=== PATIENT | female | born 1980 | race Caucasian/White ===

== ENCOUNTER → 2019-06-16 | Outpatient (CLI) | payer OTHER ==
[~2019-06-16] MED LIST: ACEBUTCAFT; ACEBUTCAFT PO; CODBUTACEC PO; ESTNORT; IBUP800 PO; NORT25 PO; OXYACE5T PO; PROM25 PO; PROP10 PO; PROP60 PO; RXONDA4ODT MM; SERT50
== END | disposition home or self-care (01) ==
LOC: LAB SHORT 10:06 → PLD 10:06
DX: M77.51 Other enthesopathy of right foot and ankle (principal); L85.1 Acquired keratosis [keratoderma] palmaris et plantaris; Q66.71 Congenital pes cavus, right foot
CPT/HCPCS: 88305; 88311

== ENCOUNTER 2019-09-23 10:48 | Day surgery (SDC) | payer OTHER ==
[~2019-09-23] VITALS: Ht 157.5 cm; Wt 106.5 kg
[~2019-09-23 10:48] MED LIST changes: +ACIDOPHILUS1 EAC3 PO; +ALPR.5; +DULO30 PO; +ESCI20 PO; +PROP120ER PO
--- NOTE | 2019-09-23 12:58 | NUR ---
09/23/19 1258 Lorraine Blackburn (Zoya 35F NASAL AIRWAY PLACED BY DR. RODRÍGUEZ AFTER PROCEDURE D/T OXYGEN DESATURATION. PT TOLERATED WELL, O2 SAT RETURNED TO BASELINE.
--- NOTE | 2019-09-23 13:46 | NUR ---
09/23/19 1346 Tamika Jaquez V PT NOTICED HER PANTS WERE WET WHEN SHE GOT OUT OF THE BED TO WALK OUT TO HER RIDE. [facility]SC.NVP OFFERED PT A CHANGE OF PANTS, PT REFUSED STATING "NA, IT'S OKAY". ORSC.NVP OFFERED HER A TOWEL TO SIT ON IN CAR; PT ACCEPTED.
== END 2019-09-23 13:37 | disposition home or self-care (01) ==
LOC: ORSCSDS 10:48
PROVIDERS: Internal Medicine Gastroenterology
PROC: 0DJ08ZZ Inspection of Upper Intestinal Tract, Via Natural or Artificial Opening Endoscopic (ICD-10-PCS; principal; 2019-09-23 12:30)
DX: Z13.9 Encounter for screening, unspecified (principal); Z01.818 Encounter for other preprocedural examination; Z79.899 Other long term (current) drug therapy; G47.33 Obstructive sleep apnea (adult) (pediatric); G60.0 Hereditary motor and sensory neuropathy; F17.210 Nicotine dependence, cigarettes, uncomplicated; E66.01 Morbid (severe) obesity due to excess calories; Z68.41 Body mass index [BMI] 40.0-44.9, adult
CPT/HCPCS: J2704; J7120

== ENCOUNTER 2019-11-26 23:38 | Observation (INO) | payer OTHER ==
[~2019-11-26] VITALS: Ht 157.5 cm; Wt 99.8 kg
[2019-11-26 23:57] LABS: BASOPHILS ABSOLUTE AUTO 0.08 K/mm3 (0.00-0.23); BASOPHILS PERCENT AUTO 1 % (0-2); EOSINOPHILS ABSOLUTE AUTO 0.32 K/mm3 (0.00-0.68); EOSINOPHILS PERCENT AUTO 2 % (0-6); Hematocrit 43.4 % (33.0-51.0); Hemoglobin 14.1 g/dL (11.5-16.0); IMMATURE GRAN ABSOLUTE AUTO 0.07 K/mm3 (0.00-0.10); IMMATURE GRAN PERCENT AUTO 1 % (0-1); LYMPHOCYTES ABSOLUTE AUTO 3.25 K/mm3 (0.84-5.20); LYMPHOCYTES PERCENT AUTO 21 % (21-46); MONOCYTES PERCENT AUTO 6 % (4-13); Mean Corpuscular HGB Conc 32.5 g/dL (31.5-36.5); Mean Corpuscular Volume 92 fL (80-100); Mean Platelet Volume 10.9 fL (9.1-12.4); NEUTROPHILS ABSOLUTE AUTO 10.84 K/mm3 (1.96-9.15); NEUTROPHILS PERCENT AUTO 70 % (41-73); Platelet Count 283 K/mm3 (150-400); RDW Coefficient Variation 13.5 % (11.7-14.2); RDW Standard Deviation 45.8 fL (35.1-46.3); White Blood Cell Count 15.46 K/mm3 (4.00-11.30)
[2019-11-27 00:14] LABS: Alanine Aminotransfer (ALT/SGP 92 U/L (12-78); Albumin, Blood 3.4 g/dL (3.4-5.0); Albumin/Globulin Ratio 0.9 (0.8-1.8); Alk Phos 67 U/L (50-136); Anion Gap 5 mmol/L (6-16); Aspartate Aminotrans (AST/SGOT 96 U/L (12-37); Blood Urea Nitrogen 10 mg/dL (8-24); Bun/Creatinine Ratio 12.7 (12.0-20.0); CO2, Blood 25 mmol/L (21-32); Calcium, Blood 9.1 mg/dL (8.5-10.1); Chloride, Blood 113 mmol/L (98-108); Creatinine, Blood 0.79 mg/dL (0.40-1.00); Globulin, Blood 3.8 g/dL (2.2-4.0); Glomerular Filtration Rate >60 (60-); Glucose, Blood 148 mg/dL (70-99); Potassium, Blood 3.9 mmol/L (3.5-5.5); Sodium, Blood 143 mmol/L (136-145); Total Protein, Blood 7.2 g/dL (6.4-8.2)
--- NOTE | 2019-11-27 06:44 | NUR ---
PT NEW ADMIT THIS AM FOR [facility]. PT VSS SINCE ARRIVING TO FLOOR. PT REP PAIN GABRIELLE, DENIED NEED FOR PAIN MEDS, DENIED N/V. PT NPO FOR PLAN FOR OR TODAY; IVF CONT PER ORDERS.
--- NOTE | 2019-11-27 09:08 | NUR ---
DR. MIKE IN TO SEE PT AT ABOUT 0830, PLAN IS FOR SURGERY THIS AFTERNOON
--- NOTE | 2019-11-27 14:22 | NUR ---
PT LEFT UNIT FOR SURGERY AT ABOUT 1345. URINE SAMPLE SENT WITH RADIO BROADCASTER
--- NOTE | 2019-11-27 14:30 | NUR ---
PT TRANSFERED TO [facility] FROM FLOOR VIA GURNEY. History, Chart, Medications and Allergies reviewed before start of procedure. History, Chart, Medications and Allergies reviewed before start of procedure. Patient confirms NPO status and agrees with scheduled surgery. Pre-Op teaching done. Pt verbalizes understanding.
--- NOTE | 2019-11-27 17:19 | NUR ---
POST OP: REPORT RECEIVED FROM WILFREDO ARZOLA RN. PT TO ROOM AT 1715. UPON ASSESSMENT, NO VISABLE DISTRESS, A/0, VSS. WILL CTM
--- NOTE | 2019-11-27 17:56 | NUR ---
SUMMARY: NO ACUTE CHANGE SINCE POST OP. VSS, PT RESTING CURRENTLY. REPORTS MINIMAL PAIN, NO NAUSEA. LAP SITES CDI. AWAITING PT VOID. SP02 STABLE ON 2L NC, WILL ATTEMPT WEAN, INSTRUCTIONS ON I.S. USE GIVEN. NO SAFETY CONCERNS AT THIS TIME.
--- NOTE | 2019-11-28 04:41 | NUR ---
SHIFT SUMMARY POD 1 LAP APPY. [id number], VSS. PT DENIES NAUSEA DURING SHIFT, REPORTS MINIMAL PAIN. TOLERATING PO WELL. AMBULATING TO RESTROOM AND VOIDING IN COMMODE. SBY ASSIST IN ROOM, PLAN TO CONTINUE TO ADVANCE DIET AND MONITOR FOR PAIN AND NAUSEA.
[2019-11-28] MEDS ORDERED: ALPR.25 PO (11:54)
[2019-11-28] MEDS ORDERED: IBUP800 PO (11:54)
--- NOTE | 2019-11-28 13:10 | NUR ---
DISCHARGE: PACKET PRINTED AND PT EDUCATED. MEDS FAXED TO PHARMACY. LEFT UNIT WITH MOTHER AND DISCHARGE VOLUNTEER AT 12:10
== END 2019-11-28 12:07 | disposition home or self-care (01) ==
LOC: ER 23:38 → SURS 23:40 → ER 11-27 00:26 → SURS 11-27 00:26
PROVIDERS: Emergency Medicine; ADMIT Surgery
PROC: BF03YZZ Plain Radiography of Gallbladder and Bile Ducts using Other Contrast (ICD-10-PCS; principal; 2019-11-27 15:00)
PROC: 0FT44ZZ Resection of Gallbladder, Percutaneous Endoscopic Approach (ICD-10-PCS; principal; 2019-11-27 15:00)
DX: K80.00 Calculus of gallbladder with acute cholecystitis without obstruction (principal); Z20.828 Contact with and (suspected) exposure to other viral communicable diseases; F17.210 Nicotine dependence, cigarettes, uncomplicated
CPT/HCPCS: 36415; 74300; 76705; 80053; 83690; 85025; 88304; 96361; 96374; 96375; 96376; 99285-25; C1729; G0378; J0295; J0330; J0690; J1170; J1885; J2250; J2405; J2710; J2765; J3010; J7030; J7120; U0002

== ENCOUNTER 2020-01-30 00:50 | Emergency (ER) | payer OTHER ==
[~2020-01-30] VITALS: Ht 157.5 cm; Wt 104.3 kg
[~2020-01-30 00:50] MED LIST changes: +ALPR.25 PO
[2020-01-30 01:40] LABS: Source, Urine Clean Catch
[2020-01-30 01:43] LABS: Bilirubin, Urine Neg (Neg); Blood, Urine 5+ (Neg); Glucose Qualitative, Urine Neg (Neg); Ketones, Urine 1+ (Neg); Leukocyte Esterase, Urine 1+ (Neg); Nitrite, Urine Neg (Neg); Protein, Urine 2+ (Neg); Urobilinogen, Urine 1+ (Normal)
[2020-01-30 01:46] LABS: Appearance, Urine Hazy (Clear); Color, Urine Amber (P-Yellow)
[2020-01-30 01:47] LABS: BASOPHILS ABSOLUTE AUTO 0.06 K/mm3 (0.00-0.23); BASOPHILS PERCENT AUTO 1 % (0-2); EOSINOPHILS ABSOLUTE AUTO 0.11 K/mm3 (0.00-0.68); EOSINOPHILS PERCENT AUTO 1 % (0-6); Hematocrit 43.3 % (33.0-51.0); Hemoglobin 14.3 g/dL (11.5-16.0); IMMATURE GRAN ABSOLUTE AUTO 0.05 K/mm3 (0.00-0.10); IMMATURE GRAN PERCENT AUTO 0 % (0-1); LYMPHOCYTES ABSOLUTE AUTO 2.23 K/mm3 (0.84-5.20); LYMPHOCYTES PERCENT AUTO 17 % (21-46); MONOCYTES PERCENT AUTO 5 % (4-13); Mean Corpuscular HGB 30.6 pg (26.0-34.0); Mean Corpuscular Volume 93 fL (80-100); Mean Platelet Volume 10.8 fL (9.1-12.4); NEUTROPHILS ABSOLUTE AUTO 9.83 K/mm3 (1.96-9.15); NEUTROPHILS PERCENT AUTO 76 % (41-73); Platelet Count 278 K/mm3 (150-400); RDW Coefficient Variation 13.3 % (11.7-14.2); RDW Standard Deviation 45.6 fL (35.1-46.3); Red Blood Cell Count 4.67 M/mm3 (3.80-5.20); White Blood Cell Count 12.98 K/mm3 (4.00-11.30)
[2020-01-30 01:49] LABS: Bacteria Few /hpf; Red Blood Cells, Urine TNTC /hpf (0-2); Squamous Epithelial Cells Few /hpf (Few)
[2020-01-30 02:00] LABS: Alanine Aminotransfer (ALT/SGP 35 U/L (12-78); Albumin, Blood 3.5 g/dL (3.4-5.0); Alk Phos 63 U/L (50-136); Anion Gap 6 mmol/L (6-16); Aspartate Aminotrans (AST/SGOT 18 U/L (12-37); Bilirubin, Total 0.5 mg/dL (0.1-1.0); Blood Urea Nitrogen 12 mg/dL (8-24); Bun/Creatinine Ratio 15.3 (12.0-20.0); CO2, Blood 27 mmol/L (21-32); Calcium, Blood 9.2 mg/dL (8.5-10.1); Chloride, Blood 107 mmol/L (98-108); Creatinine, Blood 0.79 mg/dL (0.40-1.00); Globulin, Blood 3.4 g/dL (2.2-4.0); Glomerular Filtration Rate >60 (60-); Glucose, Blood 125 mg/dL (70-99); Sodium, Blood 140 mmol/L (136-145); Total Protein, Blood 6.9 g/dL (6.4-8.2)
== END 2020-01-30 02:51 | disposition home or self-care (01) ==
LOC: ER 00:50
PROVIDERS: Emergency Medicine
DX: N20.0 Calculus of kidney (principal); F41.9 Anxiety disorder, unspecified; F41.0 Panic disorder [episodic paroxysmal anxiety]; F17.210 Nicotine dependence, cigarettes, uncomplicated; Z88.2 Allergy status to sulfonamides; Z88.8 Allergy status to other drugs, medicaments and biological substances; Z79.899 Other long term (current) drug therapy
CPT/HCPCS: 74176; 80053; 81001; 85025; 87086; 96374; 99284-25; A9270; J1885; J7030

== ENCOUNTER → 2020-02-02 | Outpatient (CLI) | payer OTHER ==
[2020-02-04 00:08] LABS: ADENOVIRUS F 40/41 Not Detected (Not Detected); ASTROVIRUS Not Detected (Not Detected); C DIFFICILE TOXIN A/B Not Detected (Not Detected); CAMPYLOBACTER Not Detected (Not Detected); CRYPTOSPORIDIUM Not Detected (Not Detected); CYCLOSPORA CAYETANENSIS Not Detected (Not Detected); ENTAMOEBA HISTOLYTICA Not Detected (Not Detected); ENTEROAGGREGATIVE E COLI Not Detected (Not Detected); ENTEROPATHOGENIC E COLI Not Detected (Not Detected); ENTEROTOXIGENIC E COLI Not Detected (Not Detected); GIARDIA LAMBLIA Not Detected (Not Detected); NOROVIRUS GI/GII Not Detected (Not Detected); PLESIOMONAS SHIGELLOIDES Not Detected (Not Detected); ROTAVIRUS A Not Detected (Not Detected); SALMONELLA Not Detected (Not Detected); SAPOVIRUS Not Detected (Not Detected); SHIGA-TOXIN-PRODUCING E COLI Not Detected (Not Detected); SHIGELLA/ENTEROINVASIVE E COLI Not Detected (Not Detected); VIBRIO Not Detected (Not Detected); VIBRIO CHOLERAE Not Detected (Not Detected); YERSINIA ENTEROCOLITICA Not Detected (Not Detected)
== END | disposition home or self-care (01) ==
LOC: LAB SHORT 09:09 → LAB 09:09
PROVIDERS: Emergency Medicine
DX: R19.7 Diarrhea, unspecified (principal); R11.0 Nausea
CPT/HCPCS: 0097U

== ENCOUNTER → 2022-10-31 | Outpatient (CLI) | payer BC, OTHER ==
[2022-11-01 15:07] LABS: HPV 16 Negative (Negative); HPV 18 Negative (Negative); HPV OTHER HR TYPES Negative (Negative)
== END | disposition home or self-care (01) ==
LOC: LAB 11:50 → LAB SHORT 11:50
PROVIDERS: Obstetrics & Gynecology
DX: Z01.419 Encounter for gynecological examination (general) (routine) without abnormal findings (principal)
CPT/HCPCS: 87624; G0145

== ENCOUNTER 2024-06-21 18:17 | Emergency (ER) | payer OTHER ==
[~2024-06-21] VITALS: Ht 157.5 cm; Wt 113.4 kg
[2024-06-21 18:25] VITALS: BP 119/82
[2024-06-21] MEDS ORDERED: Ibuprofen 600 MG Tab PO ONE (18:30)
[2024-06-21] MEDS ORDERED: IBUP600 PO (19:47)
== END 2024-06-21 19:50 | disposition home or self-care (01) ==
LOC: ER 18:17
DX: S82.831A Other fracture of upper and lower end of right fibula, initial encounter for closed fracture (principal); Z88.2 Allergy status to sulfonamides; Z88.8 Allergy status to other drugs, medicaments and biological substances; F17.210 Nicotine dependence, cigarettes, uncomplicated; W01.0XXA Fall on same level from slipping, tripping and stumbling without subsequent striking against object, initial encounter
CPT/HCPCS: 73590; 99283-25; A9270